=== PATIENT | male | born 1985 | race Caucasian/White ===

== ENCOUNTER 2017-07-17 10:53 | Emergency (ER) | payer OTHER ==
[~2017-07-17] VITALS: Ht 182.9 cm; Wt 129.0 kg
[~2017-07-17 10:53] MED LIST: NOHOMEMEDS
[2017-07-17 11:48] VITALS: BP 117/71
[2017-07-17] MEDS ORDERED: TESSALON200 MG PO (16:16)
[2017-07-17] MEDS ORDERED: INDOCIN50 MG PO (16:16)
== END 2017-07-17 16:40 | disposition home or self-care (01) ==
LOC: EME 10:53
DX: J40 Bronchitis, not specified as acute or chronic (principal); R04.2 Hemoptysis; Z87.891 Personal history of nicotine dependence
CPT/HCPCS: 71020; 99281; 99284